=== PATIENT | male | born 1940 | race Caucasian/White ===

== ENCOUNTER → 2019-12-23 | Outpatient (CLI) | payer OTHER ==
[~2019-12-23] VITALS: Ht 185.4 cm; Wt 95.3 kg
[~2019-12-23] MED LIST: ACID CONTROLLER PO; ATACAND4 MG PO; HYDROCODONE; MUSCLE RELAXER; NEXIUM40 MG PO; VITAMIN A8000 UNI1 PO; VITAMIN B-1100 M2 PO; VITAMIN C500 M1 PO; VITAMIN D3 COM1 EACH PO
[2019-12-23 09:55] VITALS: BP 140/86
--- NOTE | 2019-12-23 10:09 | NUR ---
Pain Clinic Assessment: 1. History of Osteoarthritis: BACK History of Rheumatoid Arthritis: Not Applicable 2. Height: 6 ft. 1 in. 185.4 cm. Weight: 210.0 lb. oz. 95.256 kg. Patient's BMI: 27.7 3. Vital Signs: BP: 140/86 Pulse: 74 Resp: 16 Temp: 02 Sat: 98 ECG Mon: 4. Pain Intensity: 5 5. Fall Risk: Dizziness: N Needs help standing or walking: N Fallen in the last 3 months: N Fall risk comments: 6. Patient on Blood Thinner: None 7. History of Hypertension: Y 8. Opioid Therapy greater than 6 weeks: Y Opiate Contract Signed: 9. Risk Assessment Tool Provided: LOW-3 10. Functional Assessment Tool: 11. Recreational Drug Use: Past greater than 3 mos Drug Type: Tobacco Use: Never Smoker Tobacco Type: Amount or Packs/day: How Many Years: Alcohol Use: Yes Frequency: Daily Quant: 2 WINE
--- NOTE | 2020-01-01 12:16 | HPC ---
[facility] [place] [address] PAIN MANAGEMENT CONSULTATION Name: MARILYNN CRANDALL Chacha Room #: REG VALENTINE PulidoBryanDomi.#: [id number] Admission: 12/23/19 Attend Phys: Inder Mendieta MD Discharge: Date of : 44 Report #: [id number] THIS REPORT FOR: cc: Baltazar Gunn MD, Matthew B. MD Morgan, Richard L. MD ~ CC: Jaylen Mendieta DATE OF SERVICE: 12/23/2019 CHIEF COMPLAINT: Low back pain flare with radiation to the left hip. The patient is a pleasant 79-year-old. He has had longstanding intermittent low back pain that radiates into the low back, hips. He has occasional radiculopathy. Over the years, he has managed with an excellent exercise regime. He has also had epidural injections intermittently that have been helpful at the [facility] by Dr. Ana Bentley. Last injections were in 2017. Current episode of pain began within the last month or two. He scores it as a 5/10, at times as high as a 9/10. It is an annoying sensation and interferes with his sleep. It is worsened by strenuous workout. He gets some relief from stretching. Pain is severe. He does occasionally take pain medication. He has a prescription for hydrocodone, but uses it infrequently. One tablet every few nights to help with sleep. He also uses Nexium, Atacand and has tried nonsteroidal anti-inflammatory, Aleve with mixed results. Prior drug use for this condition has also included Robaxin. He does not have that currently. ALLERGIES: None. PAST MEDICAL HISTORY: Positive for hypertension and gastroesophageal reflux disease. 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 Denies use of tobacco. Enjoys alcohol, usually a couple of glasses of wine at dinner in a social setting. [facility] [address] [place] [address] PAIN MANAGEMENT CONSULTATION Name: MARILYNN CRANDALL Room #: REG [facility]#: [id number] Admission: 12/23/19 Attend Phys: Inder Mendieta MD Discharge: Date of : 42 Report #: [id number] Impacted pain score is 37. Most notable is interference with sleep. REVIEW OF SYSTEMS: Positive for nocturia, abdominal pain on occasion related to his GERD. PHYSICAL EXAMINATION: GENERAL: Pleasant, fit, outgoing 79-year-old gentleman. VITAL SIGNS: Blood pressure is 140/86, heart rate 74, respirations 16, 6 feet 1 inch, 210 pounds, BMI is 27.7. Moves independently from sitting to standing position. His gait is nonantalgic. HEENT: Normal. Pupils equal, round, react to light. EOMs are intact. No signs of anxiety or depression. CHEST: Clear. CARDIAC: Rhythm regular. No audible murmur. MUSCULOSKELETAL: Good range of motion of the lumbar spine with no exacerbation of discomfort with back extension, rotation or [id number] tilt. Straight leg raising is negative. Strength is normal. Deep tendon reflexes are trace at knees and ankles bilaterally symmetrical. No focal weakness is noted. MRI is reviewed. There are multiple levels of degenerative changes expected for active 79-year-old who played football. It is noticeable, there is neural foraminal stenosis on both the right and left, most significant levels probably L4-L5. L5-S1 also shows neural foraminal narrowing. This is a combination of degenerative disk disease with encroachment upon the foramen and lateral recess. There is also evidence of facet arthropathy at almost every level. Some of this encroaches upon the central canal and the neural foramina. IMPRESSION: Degenerative disk disease, degenerative spine disease, facet arthropathy, lumbar spondylosis, low back pain with radiculopathy. RECOMMENDATIONS: Given his good response to past epidural injection, I think it is a reasonable place to treat him today. We discussed potential risks and benefits. We also discussed that there are other interventional procedures that we can consider for the low back if we feel that his pain generation is more from the facets. At this point in time, I would hold off on facet treatments or radiofrequency. Medications were discussed briefly. I have no problems with his current use of medications. He will continue to receive all of them from his other physicians and we do not intend to prescribe medications going forward. PROCEDURE NOTE: L4-L5 epidural under fluoroscopic guidance. He was taken to fluoroscopic suite, placed prone, skin prepped with ChloraPrep. Skin anesthetized over the L4-L5 interspace. A 20-gauge Tuohy epidural needle was advanced just to the left of midline. After negative aspiration, I injected [facility] [address] [place] [address] PAIN MANAGEMENT CONSULTATION Name: MARILYNN CRANDALL Room #: REG VALENTINE Chavez#: [id number] Admission: 12/23/19 Attend Phys: Inder Mendieta MD Discharge: Date of : 42 Report #: [id number] 1 mL of Omnipaque and excellent spread of dye was seen into the epidural space, was followed by 3 mL of 0.5% lidocaine mixed with 80 mg of triamcinolone. He tolerated the procedure well and was observed for 45 minutes and discharged. Followup visit planned as needed. May see him back in a month or two if necessary for a possible repeat injection. Further treatments will depend on the course upon response. <ELECTRONICALLY SIGNED> By: Inder Mendieta MD 01/01/20 1216 1118 1220 Inder Mendieta MD /nt
== END | disposition home or self-care (01) ==
LOC: PAIN 06:50
PROVIDERS: ATTEND Anesthesiology Pain Medicine
DX: M51.16 Intervertebral disc disorders with radiculopathy, lumbar region (principal); M47.26 Other spondylosis with radiculopathy, lumbar region; G89.29 Other chronic pain; I10 Essential (primary) hypertension; K21.9 Gastro-esophageal reflux disease without esophagitis; Z98.890 Other specified postprocedural states; Z96.651 Presence of right artificial knee joint; Z79.899 Other long term (current) drug therapy

== ENCOUNTER → 2020-04-06 | Outpatient (CLI) | payer OTHER ==
[~2020-04-06] VITALS: Ht 182.9 cm; Wt 92.4 kg
[2020-04-06 10:06] VITALS: BP 114/79
--- NOTE | 2020-04-06 10:17 | NUR ---
Pain Clinic Assessment: 1. History of Osteoarthritis: BACK History of Rheumatoid Arthritis: Not Applicable 2. Height: 6 ft. 0 in. 182.9 cm. Weight: 203.6 lb. oz. 92.352 kg. Patient's BMI: 27.6 3. Vital Signs: BP: 114/79 Pulse: 84 Resp: 16 Temp: 02 Sat: 100 ECG Mon: 4. Pain Intensity: 4 5. Fall Risk: Dizziness: N Needs help standing or walking: N Fallen in the last 3 months: N Fall risk comments: 6. Patient on Blood Thinner: None 7. History of Hypertension: Y 8. Opioid Therapy greater than 6 weeks: Y Opiate Contract Signed: 9. Risk Assessment Tool Provided: LOW-3 10. Functional Assessment Tool: 11. Recreational Drug Use: Past greater than 3 mos Drug Type: Tobacco Use: Never Smoker Tobacco Type: Amount or Packs/day: How Many Years: Alcohol Use: Yes Frequency: Quant:
--- NOTE | 2020-04-08 14:23 | HPC ---
[facility] [address] [place] [address] PAIN MANAGEMENT CONSULTATION Name: MARILYNN CRANDALL Room #: REG [facility] Jacob.#: [id number] Admission: 04/06/20 Attend Phys: Inder Mendieta MD Discharge: Date of : 42 Report #: [id number] THIS REPORT FOR: cc: Baltazar Gunn MD, Matthew B. MD Morgan, Richard L. MD ~ CC: Sakshi Mendieta DATE OF SERVICE: 04/06/2020 Followup visit for lumbar radiculopathy. CHIEF COMPLAINT: Low back pain with radiculopathy. The patient was last seen on 12/23/2019. He received a single epidural injection at L4-L5 left paramedian with good spread into the neural foramen identified by epidurogram. He had really outstanding response within the first 24-48 hours. Pain was markedly improved, stayed that way for about 2-1/2 to 3 months. Pain is now returned and he is here today for a second epidural injection. He had no need for an epidural up until a few weeks ago. Pain today is similar to before, in fact nearly identical. It begins in the low back, radiates through the left hip and into the left leg. He describes it as an annoying sensation, 4/10, worse with standing. He also gets some pain with lying down at night. He had in the past used Tylenol and ibuprofen and nonsteroidal anti-inflammatory drugs, but has discontinued them because of acid reflux. He does have a small prescription for hydrocodone prescribed for him by Dr. Lamb that he uses intermittently no more often than about every 2-3 days when he awakens in the middle of the night and cannot go back to sleep. We did have a discussion about opioids, their use and cautious safeguarding of those medications. I will not prescribe them for him today. He does not need them and we will continue to get his medication from Dr. Lamb unless he feels the need to see us for pain management medications going forward. His primary care physician can also prescribe it at this level. His morphine milligram equivalency is probably less than 5 based upon his report. There have been no significant changes in his health history as described. All medications have been reviewed and reconciled. He has had no falls. Denies use of tobacco, drinks alcohol socially. He is on no blood thinning medications. His opioid risk score assessment is 3. Functional assessment score 32/70. [address] [address] PAIN MANAGEMENT CONSULTATION Name: MARILYNN CRANDALL Room #: REG [facility]#: [id number] Admission: 04/06/20 Attend Phys: Inder Mendieta MD Discharge: Date of : 42 Report #: [id number] PHYSICAL EXAMINATION: He is 6 feet 1 inch, weight is 210. He has lost some weight. BMI is now 27.7, blood pressure 140/86, heart rate 74, respirations 16, O2 sat 98%. Moves independently from sitting to standing position, ambulates with some antalgic features to his gait. He has tenderness across his low back and has radiating pain into the left leg following an L4-L5 distribution consistent with radiculopathy. IMPRESSION: Chronic intractable low back pain, now extending into several months. History of degenerative disk disease at L4-L5, compromising the left L4 nerve root with L4-L5 radiculopathy. PROCEDURE: L4-L5 epidural injection, left paramedian approach using fluoroscopic guidance. After informed consent, he was taken to the fluoroscopic suite, placed prone, skin prepped with ChloraPrep. Skin anesthetized over the L4-L5 interspace. A 20-gauge Tuohy epidural needle advanced in the epidural space to the left of midline using fluoroscopic guidance. After negative aspiration, I injected 0.25 mL of Omnipaque demonstrating an excellent and identical epidurogram to his prior injection it was followed then by 3 mL of 0.5% lidocaine mixed with 80 mg of triamcinolone. He tolerated the procedure well. There were no complications. He was observed in the recovery room for 45 minutes and discharged. Followup visit planned as needed. I did give him an appointment in 1 month. He has had a series of injections in the past and felt that he may have had a longer duration of response. We discussed that at some length today before the left. I will be happy to repeat his injection, but would like to perform them more on an as needed basis as we have done so that we do not run into a situation where he has aggravated his radicular symptoms and is no longer able to get an injection. <ELECTRONICALLY SIGNED> By: Inder Mendieta MD 04/08/20 1423 [id number] Inder Mendieta MD /nt
== END | disposition home or self-care (01) ==
LOC: PAIN 06:55
PROVIDERS: ATTEND Anesthesiology Pain Medicine
DX: M54.16 Radiculopathy, lumbar region (principal); G89.29 Other chronic pain; Z98.890 Other specified postprocedural states; Z79.899 Other long term (current) drug therapy

== ENCOUNTER → 2020-07-22 | Outpatient (CLI) | payer OTHER ==
[~2020-07-22] VITALS: Ht 182.9 cm; Wt 92.7 kg
[~2020-07-22] MED LIST changes: +FOLIC D3 94.381 EACH PO; +HYDROCODON-ACE1 EAC5 PO; +ROBAXIN 750 MG750 MG PO; +TRAMADOL 50 MG50 MG PO
[2020-07-22 14:31] VITALS: BP 129/80
--- NOTE | 2020-07-22 14:45 | NUR ---
Pain Clinic Assessment: 1. History of Osteoarthritis: BACK History of Rheumatoid Arthritis: Not Applicable 2. Height: 6 ft. 0 in. 182.9 cm. Weight: 204.4 lb. oz. 92.715 kg. Patient's BMI: 27.7 3. Vital Signs: BP: 129/80 Pulse: 79 Resp: 16 Temp: 02 Sat: 97 ECG Mon: 4. Pain Intensity: 5 5. Fall Risk: Dizziness: N Needs help standing or walking: N Fallen in the last 3 months: N Fall risk comments: 6. Patient on Blood Thinner: None 7. History of Hypertension: Y 8. Opioid Therapy greater than 6 weeks: Y Opiate Contract Signed: 07/22/20 9. Risk Assessment Tool Provided: LOW-3 10. Functional Assessment Tool: 11. Recreational Drug Use: Past greater than 3 mos Drug Type: Tobacco Use: Never Smoker Tobacco Type: Amount or Packs/day: How Many Years: Alcohol Use: Yes Frequency: Quant:
== END | disposition home or self-care (01) ==
LOC: PAIN 06:49
PROVIDERS: ATTEND Anesthesiology Pain Medicine
DX: M54.16 Radiculopathy, lumbar region (principal); G89.29 Other chronic pain; I10 Essential (primary) hypertension; Z98.890 Other specified postprocedural states; Z79.899 Other long term (current) drug therapy; Z90.49 Acquired absence of other specified parts of digestive tract

== ENCOUNTER → 2020-09-16 | Outpatient (CLI) | payer OTHER ==
[~2020-09-16] VITALS: Ht 185.4 cm; Wt 93.9 kg
[~2020-09-16] MED LIST changes: +MELOXICAM15 MG PO
[2020-09-16 14:44] VITALS: BP 129/74
--- NOTE | 2020-09-16 14:51 | NUR ---
Pain Clinic Assessment: 1. History of Osteoarthritis: BACK History of Rheumatoid Arthritis: Not Applicable 2. Height: 6 ft. 1 in. 185.4 cm. Weight: 207.0 lb. oz. 93.895 kg. Patient's BMI: 27.3 3. Vital Signs: BP: 129/74 Pulse: 77 Resp: 18 Temp: 02 Sat: 97 ECG Mon: 4. Pain Intensity: 6 5. Fall Risk: Dizziness: N Needs help standing or walking: N Fallen in the last 3 months: N Fall risk comments: 6. Patient on Blood Thinner: None 7. History of Hypertension: Y 8. Opioid Therapy greater than 6 weeks: Y Opiate Contract Signed: 07/22/20 9. Risk Assessment Tool Provided: LOW-3 10. Functional Assessment Tool: 11. Recreational Drug Use: Never Drug Type: Tobacco Use: Never Smoker Tobacco Type: Amount or Packs/day: How Many Years: Alcohol Use: Yes Frequency: Daily Quant: 2 WINE
== END | disposition home or self-care (01) ==
LOC: PAIN 07:00
PROVIDERS: ATTEND Anesthesiology Pain Medicine
DX: M48.061 Spinal stenosis, lumbar region without neurogenic claudication (principal); M54.16 Radiculopathy, lumbar region; G89.29 Other chronic pain; I10 Essential (primary) hypertension; Z98.890 Other specified postprocedural states; Z79.899 Other long term (current) drug therapy

== ENCOUNTER → 2021-02-14 | Outpatient (CLI) | payer OTHER ==
[~2021-02-14] VITALS: Ht 185.4 cm; Wt 93.4 kg
[2021-02-14 09:56] VITALS: BP 142/91
--- NOTE | 2021-02-14 10:07 | NUR ---
Pain Clinic Assessment: 1. History of Osteoarthritis: BACK History of Rheumatoid Arthritis: Not Applicable 2. Height: 6 ft. 1 in. 185.4 cm. Weight: 206.0 lb. oz. 93.441 kg. Patient's BMI: 27.2 3. Vital Signs: BP: 142/91 Pulse: 78 Resp: 16 Temp: 02 Sat: 100 ECG Mon: 4. Pain Intensity: 3 5. Fall Risk: Dizziness: N Needs help standing or walking: N Fallen in the last 3 months: N Fall risk comments: 6. Patient on Blood Thinner: None 7. History of Hypertension: Y 8. Opioid Therapy greater than 6 weeks: Y Opiate Contract Signed: 07/22/20 9. Risk Assessment Tool Provided: LOW-3 10. Functional Assessment Tool: 11. Recreational Drug Use: Never Drug Type: Tobacco Use: Never Smoker Tobacco Type: Amount or Packs/day: How Many Years: Alcohol Use: Yes Frequency: Quant:
== END ==
LOC: PAIN 06:58
PROVIDERS: ATTEND Anesthesiology Pain Medicine
DX: M48.061 Spinal stenosis, lumbar region without neurogenic claudication (principal); M54.16 Radiculopathy, lumbar region; Z79.891 Long term (current) use of opiate analgesic; Z79.899 Other long term (current) drug therapy

== ENCOUNTER → 2021-04-25 | Outpatient (CLI) | payer OTHER ==
[~2021-04-25] VITALS: Ht 185.4 cm; Wt 94.8 kg
[2021-04-25 13:59] VITALS: BP 114/64
--- NOTE | 2021-04-25 14:31 | NUR ---
Pain Clinic Assessment: 1. History of Osteoarthritis: BACK History of Rheumatoid Arthritis: Not Applicable 2. Height: 6 ft. 1 in. 185.4 cm. Weight: 209.0 lb. oz. 94.802 kg. Patient's BMI: 27.6 3. Vital Signs: BP: 114/64 Pulse: 75 Resp: 16 Temp: 02 Sat: 98 ECG Mon: 4. Pain Intensity: 3 5. Fall Risk: Dizziness: N Needs help standing or walking: N Fallen in the last 3 months: N Fall risk comments: 6. Patient on Blood Thinner: None 7. History of Hypertension: Y 8. Opioid Therapy greater than 6 weeks: Y Opiate Contract Signed: 07/22/20 9. Risk Assessment Tool Provided: LOW-3 10. Functional Assessment Tool: 11. Recreational Drug Use: Never Drug Type: Tobacco Use: Never Smoker Tobacco Type: Amount or Packs/day: How Many Years: Alcohol Use: Yes Frequency: Monthly Quant: 2
== END ==
LOC: PAIN 10:09
PROVIDERS: ATTEND Anesthesiology Pain Medicine
DX: G89.29 Other chronic pain (principal); M51.16 Intervertebral disc disorders with radiculopathy, lumbar region; Z79.899 Other long term (current) drug therapy

== ENCOUNTER → 2021-06-30 | Outpatient (CLI) | payer OTHER ==
[~2021-06-30] VITALS: Ht 185.4 cm; Wt 92.5 kg
[2021-06-30 09:53] VITALS: BP 152/87
--- NOTE | 2021-06-30 10:10 | NUR ---
Pain Clinic Assessment: 1. History of Osteoarthritis: BACK History of Rheumatoid Arthritis: Not Applicable 2. Height: 6 ft. 1 in. 185.4 cm. Weight: 204.0 lb. oz. 92.534 kg. Patient's BMI: 26.9 3. Vital Signs: BP: 152/87 Pulse: 63 Resp: 16 Temp: 02 Sat: 97 ECG Mon: 4. Pain Intensity: 2 5. Fall Risk: Dizziness: N Needs help standing or walking: N Fallen in the last 3 months: N Fall risk comments: 6. Patient on Blood Thinner: None 7. History of Hypertension: Y 8. Opioid Therapy greater than 6 weeks: Y Opiate Contract Signed: 07/22/20 9. Risk Assessment Tool Provided: LOW-3 10. Functional Assessment Tool: 11. Recreational Drug Use: Never Drug Type: Tobacco Use: Never Smoker Tobacco Type: Amount or Packs/day: How Many Years: Alcohol Use: Yes Frequency: Quant:
== END ==
LOC: PAIN 09:07
PROVIDERS: ATTEND Anesthesiology Pain Medicine
DX: G89.29 Other chronic pain (principal); M51.16 Intervertebral disc disorders with radiculopathy, lumbar region; Z79.899 Other long term (current) drug therapy